=== PATIENT | female | born 1990 | race African-American/Black ===

== ENCOUNTER 2016-09-22 20:57 | Emergency (ER) | payer SELFPAY ==
[~2016-09-22] VITALS: Ht 157.5 cm; Wt 59.0 kg
[~2016-09-22 20:57] MED LIST: AZIT250T6 PO; BENZ100C PO; PRED50TA PO; VENTOLIN HFA18 GM INH
[2016-09-22 21:00] VITALS: BP 135/86
[2016-09-22] MEDS ORDERED: SULF1TAB24 PO (21:54)
[2016-09-22] MEDS ORDERED: HYDR-971 PO (21:54)
--- NOTE | 2016-09-22 21:54 | PHYS DOC ---
Past Medical History Past Medical History: No Pertinent History Past Surgical History: No Surgical History Alcohol Use: Occasionally Drug Use: None Adult General Chief Complaint Chief Complaint: VAGINAL PROBLEM HPI HPI Patient is a 26 year old female presents to the emergency department stating that she has an area on her left perineal that is red and swollen and very tender. She states that it developed last night. She denies any drainage or discharge coming from the site. Patient also states that she has right frontal sinus tenderness. She's had for the last 3-4 days. She denies taking any medication for either. Immunizations are up-to-date. Review of Systems Review of Systems Constitutional: Denies fever or chills [] Eyes: Denies change in visual acuity, redness, or eye pain [] HENT: Denies nasal congestion or sore throat. Frontal sinus tenderness Respiratory: Denies cough or shortness of breath [] Cardiovascular: No additional information not addressed in HPI [] GI: Denies abdominal pain, nausea, vomiting, bloody stools or diarrhea [] : Denies dysuria or hematuria [] Musculoskeletal: Denies back pain or joint pain [] Integument: Denies rash or skin lesions. Abscess left perineal area Neurologic: Denies headache, focal weakness or sensory changes [] Current Medications Current Medications Current Medications Medications (Trade) Dose Ordered Sig/Carine Start Time Stop Time Status Last Admin Dose Admin Lidocaine/Sodium Bicarbonate (Buffered Lidocaine 1%) 20 ml 1X ONCE 09/22/16 22:00 09/22/16 22:01 Allergies Allergies Allergies Coded Allergies Type Severity Reaction Last Updated Verified No Known Drug Allergies 10/05/14 No Physical Exam Physical Exam Constitutional: Well developed, well nourished, no acute distress, non-toxic appearance. [] HENT: Normocephalic, atraumatic, bilateral external ears normal, oropharynx moist, no oral exudates, nose normal. Bilateral tympanic membranes appear to be normal. Patient with right frontal sinus tenderness. With no erythematous no postnasal drip noted Eyes: PERRLA, EOMI, conjunctiva normal, no discharge. [] Neck: Normal range of motion, no tenderness, supple, no stridor. [] Cardiovascular:Heart rate regular rhythm Lungs & Thorax: No respiratory distress Skin: Warm, dry, no erythema, no rash. Quarter size area on the left perineal that is red swollen tender to touch with no drainage noted. Back: No tenderness Extremities: No tenderness, no cyanosis, no clubbing, ROM intact, no edema. [] Neurologic: Alert and oriented X 3, normal motor function, normal sensory function, no focal deficits noted. [] Psychologic: Affect normal, judgement normal, mood normal. [] Current Patient Data Vital Signs Vital Signs Date Time Temp Pulse Resp B/P Pulse Ox O2 Delivery O2 Flow Rate FiO2 09/22/16 21:00 98.1 92 16 100 Room Air 98.1 EKG EKG [] Radiology/Procedures Radiology/Procedures [] Course & Med Decision Making Course & Med Decision Making Pertinent Labs and Imaging studies reviewed. (See chart for details) Patient will be discharged home with recommendations to use warm moist soaks pads to the area 4-5 times a day for 20 minutes at a time. Patient was also encouraged to use ibuprofen for pain and discomfort. She is also encouraged to use Sudafed to help with her sinus pressure. Instructed patient to drink plenty of fluids. Medications as prescribed. Signs and symptoms to return back to emergency department. Patient will be discharged home in stable condition. [] Dragon Disclaimer Dragon Disclaimer This electronic medical record was generated, in whole or in part, using a voice recognition dictation system. Departure Departure Impression: Primary Impression: Perineal abscess Disposition: 01 HOME, SELF-CARE Condition: STABLE Referrals: NO PCP (PCP) Patient Instructions: Abscess, Perineal Additional Instructions: warm moist soaks pads to the area 4-5 times a day for 20 minutes at a time. ibuprofen 800 mg every 8 hours for pain and discomfort this medication with food to prevent upset stomach. Upset stomach develops stop taking. Sudafed to be taken to help with sinus pressure. Take this medication as prescribed by bedspread cutter. drink plenty of fluids. Medications as prescribed. Hydrocodone will cause drowsiness do not take any be alert and oriented. Follow-up through primary care physician next 3-5 days. Return to the emergency department sign symptoms of become worse. Scripts Sulfamethoxazole/Trimethoprim (Bactrim Ds Tablet)1 Each Tablet1 Tab PO BID #20 TAB Prov:ARTEM ALLEN MINING TEACHER 09/22/16 Hydrocodone/Apap 5-325 ([place] 5-325 Tablet)1 Each Tablet1 Tab PO PRN Q6HRS PRN PAIN #6 TAB Prov:ARTEM ALLEN APRN 09/22/16 Incision and Drainage Incision and Drainage : Site: left perineal area Blade Size: 11 I & D Procedure: betadine prep Progress . Area was cleaned with Betadine, 1% lidocaine 4 mL was injected into the area. # 11 blade was used to incise the area with yellow drainage noted. Patient tolerated the procedure well. ARTEM ALLEN APRN Sep 22, 2016 21:54
[2016-09-22] MEDS ORDERED: IBUPROFEN 800 MG TABLET. PO ONE (22:00)
[2016-09-22] MEDS ORDERED: LIDOCAINE 1% / SOD BICARB 8.4% 20 ML VIAL. IJ ONE (22:00)
[2016-09-22] MEDS ORDERED: PSEUDOEPHEDRINE ER 120 MG TABLET.ER. PO ONE (22:00)
== END 2016-09-22 22:05 | disposition home or self-care (01) ==
LOC: ER 20:57
DX: L02.215 Cutaneous abscess of perineum (principal)
CPT/HCPCS: 56405; 99283; 99284-25

== ENCOUNTER 2017-02-27 07:32 | Emergency (ER) | payer SELFPAY ==
[~2017-02-27] VITALS: Ht 157.5 cm; Wt 52.2 kg
[~2017-02-27 07:32] MED LIST changes: +HYDR-971 PO; +SULF1TAB24 PO
[2017-02-27] MEDS ORDERED: IV NORMAL SALINE 1000ML BAG 1,000 ML IV SCH (07:47)
--- NOTE | 2017-02-27 07:52 | PHYS DOC ---
Past Medical History Past Medical History: No Pertinent History Past Surgical History: No Surgical History Additional Past Surgical Histo: LEFT BREAST ABCESS Alcohol Use: Occasionally Drug Use: None Adult General Chief Complaint Chief Complaint: DIZZY/LIGHT HEADED HPI HPI Patient is a 26 year old female presents to the ED complaining of dizziness over the last week. States she feels like the room is moving. Denies any medical problems but has a family history of graves disease. States she uses mirena for control. Associated symptoms include ringing in ears. Admits to being told she needs to drink more water. Denies chest pain, shortness of breath, headache, vision changes, n/v, syncope, weakness or fever. Review of Systems Review of Systems Constitutional: Denies fever or chills [] Eyes: Denies change in visual acuity, redness, or eye pain [] HENT: Denies nasal congestion or sore throat [] Respiratory: Denies cough or shortness of breath [] Cardiovascular: No additional information not addressed in HPI [] GI: Denies abdominal pain, nausea, vomiting, bloody stools or diarrhea [] : Denies dysuria or hematuria [] Musculoskeletal: Denies back pain or joint pain [] Integument: Denies rash or skin lesions [] Neurologic: Denies headache, focal weakness or sensory changes [] Endocrine: Denies polyuria or polydipsia [] Current Medications Current Medications Current Medications Medications (Trade) Dose Ordered Sig/Carine Start Time Stop Time Status Last Admin Dose Admin Ondansetron HCl (Zofran) 4 mg 1X ONCE 02/27/17 08:45 02/27/17 08:46 DC 02/27/17 09:28 4 MG Potassium Chloride (Klor-Con) 40 meq 1X ONCE 02/27/17 09:45 02/27/17 09:48 DC 02/27/17 09:55 40 MEQ Sodium Chloride 1,000 ml @ 1,000 mls/hr Q1H 02/27/17 07:47 02/27/17 08:46 DC 02/27/17 08:05 1,000 MLS/HR Allergies Allergies Allergies Coded Allergies Type Severity Reaction Last Updated Verified No Known Drug Allergies 10/05/14 No Physical Exam Physical Exam Constitutional: Well developed, well nourished, no acute distress, non-toxic appearance. [] HENT: Normocephalic, atraumatic, bilateral external ears normal, oropharynx moist, no oral exudates, nose normal. [] Eyes: PERRLA, EOMI, conjunctiva normal, no discharge. [] Neck: Normal range of motion, no tenderness, supple, no stridor. [] Cardiovascular:Heart rate regular rhythm, no murmur [] Lungs & Thorax: Bilateral breath sounds clear to auscultation [] Abdomen: Bowel sounds normal, soft, no tenderness, no masses, no pulsatile masses. [] Skin: Warm, dry, no erythema, no rash. [] Back: No tenderness, no CVA tenderness. [] Extremities: No tenderness, no cyanosis, no clubbing, ROM intact, no edema. [] Neurologic: Alert and oriented X 3, normal motor function, normal sensory function, no focal deficits noted. [] Psychologic: Affect normal, judgement normal, mood normal. [] Current Patient Data Vital Signs Vital Signs Date Time Temp Pulse Resp B/P (MAP) Pulse Ox O2 Delivery O2 Flow Rate FiO2 02/27/17 09:41 94 17 116/63 (80) 98 Room Air 02/27/17 07:41 98.0 98.0 Lab Values Laboratory Tests Test 02/27/17 07:41 02/27/17 07:46 02/27/17 08:00 02/27/17 09:03 Urine Collection Type Unknown Urine Color Yellow Urine Clarity Clear Urine pH 6.0 Urine Specific [place] 1.025 Urine Protein Negative mg/dL (NEG-TRACE) Urine Glucose (UA) Negative mg/dL (NEG) Urine Ketones (Stick) Negative mg/dL (NEG) Urine Blood Negative (NEG) Urine Nitrite Negative (NEG) Urine Bilirubin Negative (NEG) Urine Urobilinogen Dipstick 0.2 mg/dL (0.2 mg/dL) Urine Leukocyte Esterase Trace (NEG) Urine RBC 0 /HPF (0-2) Urine WBC Occ /HPF (0-4) Urine Squamous Epithelial Cells Few /LPF Urine Bacteria Few /HPF (0-FEW) Urine Opiates Screen Neg (NEG) Urine Methadone Screen Neg (NEG) Urine Barbiturates Neg (NEG) Urine Phencyclidine Screen Neg (NEG) Urine Amphetamine/Methamphetamine Neg (NEG) Urine Benzodiazepines Screen Neg (NEG) Urine Cocaine Screen Neg (NEG) Urine Cannabinoids Screen Neg (NEG) Urine Ethyl Alcohol Neg (NEG) POC Urine HCG, Qualitative Hcg negative (Negative) White Blood Count 8.0 x10^3/uL (4.0-11.0) Red Blood Count 4.62 x10^6/uL (3.50-5.40) Hemoglobin 13.9 g/dL (12.0-15.5) Hematocrit 41.8 % (36.0-47.0) Mean Corpuscular Volume 91 fL (79-100) Mean Corpuscular Hemoglobin 30 pg (25-35) Mean Corpuscular Hemoglobin Concent 33 g/dL (31-37) Red Cell Distribution Width 13.1 % (11.5-14.5) Platelet Count 186 x10^3/uL (140-400) Neutrophils (%) (Auto) 54 % (31-73) Lymphocytes (%) (Auto) 35 % (24-48) Monocytes (%) (Auto) 6 % (0-9) Eosinophils (%) (Auto) 4 % (0-3) H Basophils (%) (Auto) 1 % (0-3) Neutrophils # (Auto) 4.3 x10^3uL (1.8-7.7) Lymphocytes # (Auto) 2.8 x10^3/uL (1.0-4.8) Monocytes # (Auto) 0.5 x10^3/uL (0.0-1.1) Eosinophils # (Auto) 0.3 x10^3/uL (0.0-0.7) Basophils # (Auto) 0.1 x10^3/uL (0.0-0.2) Prothrombin Time 12.4 SEC (11.7-14.0) Prothrombin Time INR 1.0 (0.8-1.1) D-Dimer (Chyna) 0.40 ug/mlFEU (0.00-0.50) Creatine Kinase 108 U/L (26-192) Creatine Kinase MB (Mass) 0.6 ng/mL (0.0-3.6) Creatine Kinase MB Relative Index 0.6 % (0-4) Troponin I Quantitative < 0.017 ng/mL (0.000-0.055) Thyroid Stimulating Hormone (TSH) 1.638 uIU/mL (0.358-3.74) Serum Test, Qualitative Negative (NEG) Sodium Level 140 mmol/L (136-145) Potassium Level 3.4 mmol/L (3.5-5.1) L Chloride Level 102 mmol/L (98-107) Carbon Dioxide Level 25 mmol/L (21-32) Anion Gap 13 (6-14) Blood Urea Nitrogen 14 mg/dL (7-20) Creatinine 0.7 mg/dL (0.6-1.0) Estimated GFR (Cockcroft-Gault) 121.5 BUN/Creatinine Ratio 20 (6-20) Glucose Level 104 mg/dL (70-99) H Calcium Level 9.3 mg/dL (8.5-10.1) Total Bilirubin 0.6 mg/dL (0.2-1.0) Aspartate Amino Transferase (AST) 23 U/L (15-37) Alanine Aminotransferase (ALT) 28 U/L (14-59) Alkaline Phosphatase 97 U/L (46-116) Total Protein 8.0 g/dL (6.4-8.2) Albumin 4.0 g/dL (3.4-5.0) Albumin/Globulin Ratio 1.0 (1.0-1.7) Laboratory Tests 02/27/17 08:00 Laboratory Tests 02/27/17 09:03 EKG EKG Normal sinus rhythm, heart rate 100 bpm. No STEMI or acute changes. Radiology/Procedures Radiology/Procedures PROCEDURE: CT HEAD WO CONTRAST CT of the head without contrast, 02/27/2017: History: Dizziness The ventricles are within normal limits in size. There is no shift of the midline structures. There is no evidence of acute intracranial hemorrhage or mass effect. IMPRESSION: No acute intracranial abnormality is detected. PQRS Compliance Statement: One or more of the following individualized dose reduction techniques were utilized for this examination: 1. Automated exposure control 2. Adjustment of the mA and/or kV according to patient size 3. Use of iterative reconstruction technique []PROCEDURE: PORTABLE CHEST 1V Portable chest, 02/27/2017: History: Dizziness Comparison is made to a study from 12/25/2015. The heart size and pulmonary vascularity are normal. No pulmonary infiltrates are seen. There is no evidence of pleural fluid. IMPRESSION: No acute cardiopulmonary abnormality is detected. Impressions: Discussed labs and imaging with patient. Patient's improved. Vitals stable, no acute distress. Patient given fluids and potassium in ED. Discussed follow-up with patient and provided contact information/education for follow-up. Will treat outpatient for uti with macrobid. Discussed reasons to return to the ED. Patient understands and agrees with plan. Family at bedside. Course & Med Decision Making Course & Med Decision Making Pertinent Labs and Imaging studies reviewed. (See chart for details) [] Dragon Disclaimer Dragon Disclaimer This electronic medical record was generated, in whole or in part, using a voice recognition dictation system. Departure Departure Impression: Primary Impression: Dehydration Additional Impression: Urinary tract infection Disposition: HOME, SELF-CARE Condition: IMPROVED Referrals: KARI LUCERO MD Patient Instructions: Dehydration, Adult, Hypokalemia, Urinary Tract Infection Scripts Nitrofurantoin Monohyd/M-Cryst (MACROBID 100 MG CAPSULE) 100 Mg Capsule 1 CAP PO BID, #14 CAP Prov: LOLLY BANG 02/27/17 Problem Qualifiers LOLLY BANG Feb 27, 2017 07:52
[2017-02-27 08:00] LABS: BILIRUBIN,URINE NEGATIVE (NEG); GLUCOSE,URINE NEGATIVE (NEG); NITRITE,URINE NEGATIVE (NEG); PROTEIN,URINE NEGATIVE (NEG-TRACE); UROBILINOGEN,URINE 0.2 mg/dL (0.2 mg/dL)
[2017-02-27 08:07] LABS: BARBITURATES NEG (NEG); BENZODIAZEPINES NEG (NEG); CANNABINOIDS NEG (NEG); COCAINE NEG (NEG); METHADONE NEG (NEG); OPIATES NEG (NEG); PHENCYCLIDINE NEG (NEG)
[2017-02-27 08:13] LABS: BASO # 0.1 x10^3/uL (0.0-0.2); BASO % 1 % (0-3); EOS % 4 % (0-3); HEMATOCRIT 41.8 % (36.0-47.0); HEMOGLOBIN 13.9 g/dL (12.0-15.5); LYMPH # 2.8 x10^3/uL (1.0-4.8); LYMPH % 35 % (24-48); MEAN CORPUSCULAR HEMOGLOBIN 30 pg (25-35); MEAN CORPUSCULAR HGB CONC 33 g/dL (31-37); MEAN CORPUSCULAR VOLUME 91 fL (79-100); MONO % 6 % (0-9); NEUT % 54 % (31-73); PLATELET COUNT 186 x10^3/uL (140-400); RED BLOOD COUNT 4.62 x10^6/uL (3.50-5.40); RED CELL DISTRIBUTION WIDTH 13.1 % (11.5-14.5)
[2017-02-27 08:13] LABS: BACTERIA,URINE FEW /HPF (0-FEW); RBC,URINE 0 /HPF (0-2); SQUAMOUS EPITHELIAL CELL,UR FEW /LPF; WBC,URINE OCC /HPF (0-4)
[2017-02-27 08:22] LABS: NEG OBC SER NEG; POS OBC SER POS
[2017-02-27 08:23] LABS: PROTHROMBIN TIME PATIENT 12.4 SEC (11.7-14.0)
--- NOTE | 2017-02-27 08:25 | RAD ---
Portable chest, 02/27/2017: History: Dizziness Comparison is made to a study from 12/25/2015. The heart size and pulmonary vascularity are normal. No pulmonary infiltrates are seen. There is no evidence of pleural fluid. IMPRESSION: No acute cardiopulmonary abnormality is detected.
[2017-02-27 08:33] LABS: CKMB MASS 0.6 ng/mL (0.0-3.6)
[2017-02-27] MEDS ORDERED: ONDANSETRON PF 4 MG/2 ML VIAL. IV ONE (08:45)
--- NOTE | 2017-02-27 09:08 | RAD ---
CT of the head without contrast, 02/27/2017: History: Dizziness The ventricles are within normal limits in size. There is no shift of the midline structures. There is no evidence of acute intracranial hemorrhage or mass effect. IMPRESSION: No acute intracranial abnormality is detected. PQRS Compliance Statement: One or more of the following individualized dose reduction techniques were utilized for this examination: 1. Automated exposure control 2. Adjustment of the mA and/or kV according to patient size 3. Use of iterative reconstruction technique
[2017-02-27 09:19] LABS: CALCIUM 9.3 mg/dL (8.5-10.1); CREATININE 0.7 mg/dL (0.6-1.0); GFR 121.5; POTASSIUM 3.4 mmol/L (3.5-5.1)
[2017-02-27 09:26] LABS: TOTAL BILIRUBIN 0.6 mg/dL (0.2-1.0)
[2017-02-27 09:41] VITALS: BP 116/63
[2017-02-27] MEDS ORDERED: POTASSIUM CHLORIDE 20 MEQ TABLET.ER. PO ONE (09:45)
[2017-02-27] MEDS ORDERED: NITR100C62 PO (09:52)
--- NOTE | 2017-02-27 13:54 | EKG ---
[facility] [address] [place] [id number] Test Date: 2017-02-27 Test Time: 08:09:11 Pat Name: RAMIN HOLLIDAY Department: Room: Gender: F Filter Bed Placer: : 1990 Requested By: LOLLY BANG Order Number: [id number] Reading MD: Landy Behtea Measurements Intervals [place] Rate: 100 P: 69 W[place]: 194 QRS: 34 QRSD: 80 T: 23 QT: 398 QTc: 517 Interpretive Statements SINUS RHYTHM NORMAL EKG Electronically Signed On 03-04-2017 21:45:31 CDT by Landy Bethea
== END 2017-02-27 10:05 | disposition home or self-care (01) ==
LOC: ER 07:32
DX: E86.0 Dehydration (principal); N39.0 Urinary tract infection, site not specified; Z79.899 Other long term (current) drug therapy; Z79.01 Long term (current) use of anticoagulants
CPT/HCPCS: 36415; 70450; 71010; 80053; 80307; 81001; 81025; 82553; 84443; 84484; 84703; 85025; 85379; 85610; 93005; 96361; 96374; 99285; J2405; J7030; G0479